=== PATIENT | female | born 1990 | race Caucasian/White ===

== ENCOUNTER 2020-02-25 11:49 | Emergency (ER) | payer OTHER, MEDICAID, SELFPAY ==
[2020-02-25 11:59] VITALS: BP 130/82; PULSE 66; RESP 12; TEMP 36.9; BMI 21.4
--- NOTE | 2020-02-25 12:07 | DI.RAD.S_ITS ---
PROCEDURE: XR SHOULDER LT MIN 2V INDICATIONS: fell on anterior shoulder 3 days ago, skateboard, pain/ROM TECHNIQUE: 2 views of the shoulder were acquired. COMPARISON: None. FINDINGS: Bones: No fractures or dislocations. No suspicious bony lesions. Visualized ribs appear intact. Soft tissues: No suspicious soft tissue calcifications. IMPRESSION: No visualized acute fracture or dislocation. However, if clinical concern and/or pain persist, short interval imaging followup in 7-10 days is recommended, as occult injury cannot be definitively excluded. Dictated by: Teri Momin M.D. on 02/25/2020 at 12:27 Approved by: Teri Momin M.D. on 02/25/2020 at 12:29
--- NOTE | 2020-02-25 12:25 | ED_ITS ---
HPI - Extremity Injury (Upper) <KRYS StroudP - Last Filed: 02/25/20 12:47> General Chief Complaint: Extremity Injury, Upper Stated Complaint: left shoulder injury from skate boarding Time Seen by Provider: 02/25/20 12:00 Source: patient Mode of arrival: Ambulatory Limitations: no limitations History of Present Illness HPI narrative: This is a 29-year-old female, nonsmoker, with noncontributing medical history presents to ED with chief complain of generalize left shoulder discomfort for last 3 days after she fell off skateboarding with a helmet on. She was coming down a ramp and and accidentally fell and slammed on left anterior shoulder while the arm was hyper extended. Reports has limited range of motion on left shoulder but is able to extend and flex elbow, wrist and fingers and intact sensation distally. Patient has been using ice which helped with discomfort. She has not been taking any medications but is taking collagen, vitamin-C and topical magnesium for pain. Right dominant hand. Patient denies injuring head, losing consciousness or other areas from this fall. Review of Systems <Jorge RodrigesShashiKRYS GonsalezP - Last Filed: 02/25/20 12:47> Review of Systems Narrative: General: Denies fever, chills, fatigue, malaise, sweats. HEENT: Denies sinus pain, ear pain, sore throat, difficulty swallowing, dizziness. Respiratory: Denies dyspnea, cough, wheezing, hemoptysis, sputum. Cardiovascular: Denies chest pain, palpitations, orthopnea, edema. Gastrointestinal: Denies nausea, vomiting, abdominal pain, diarrhea, constipation, melena. : Denies dysuria, frequency, incontinence, hematuria, urinary retention. Musculoskeletal: See HPI Skin: Denies rash, skin lesions, or other. Neurologic: Denies weakness, headache, numbness, change in speech, confusion, seizures, incoordination. Psychiatric: No concerning psychosocial issues. 12-point review of systems is negative except for those stated above. Patient History <KRYS StroudP - Last Filed: 02/25/20 12:47> Social History Smoking Status: Never smoker Smoking Status: Never smoker alcohol intake frequency: a few times a week Alcohol type: beer Substance Use Type: does not use Exam <KRYS StroudP - Last Filed: 02/25/20 12:47> Narrative Exam Narrative: General appearance: well developed, well nourished, in no acute distress. Head: normocephalic, atraumatic, no scalp lesions, non-tender. ENT: Hearing grossly intact. Airway patent. Neck/Thyroid: neck supple, full range of motion, no visible masses or meningeal signs. No JVD, non-tender without lymphadenopathy. Skin: no suspicious rashes, lesions over visible areas. Warm and dry and appropriate color for ethnicity. Heart: no clubbing, no cyanosis, no edema. S1 and S2 normal. RRR w/o murmurs, clicks, or bruits. Lungs: Breathing even and unlabored. No stridor. No accessory muscles used. Able to speak in full sentences. Chest: normal shape and expansion. Abdomen: non-obese, non-distended. Neurologic: alert and oriented. Cognitive exam, RIG OPERATOR and PNS grossly intact on informal exam. Psych: good eye contact, normal affect. Initial Vital Signs Initial Vital Signs: Vital Signs Temperature 98.4 F 02/25/20 11:59 Pulse Rate 66 02/25/20 11:59 Respiratory Rate 12 02/25/20 11:59 Blood Pressure 130/82 02/25/20 11:59 Extrem Left upper extremity: normal to inspection, shoulder/upper arm Details: inspection abnormal, tenderness Location: of the A-C joint, of the proximal humerus and over the biceps tendon and abnormal ROM (greater than 90 degress) Details: pain with active ROM Details: in ADduction, in ABduction, in extension, in flexion and in internal rotation and pain with passive ROM, elbow/forearm Details: normal to inspection and normal ROM; no tenderness and no swelling and wrist Details: normal to inspection and normal ROM; no tenderness and no swelling; ROM limited <Kim Martínez DO - Last Filed: 02/27/20 08:25> Initial Vital Signs Initial Vital Signs: Vital Signs Temperature 98.4 F 02/25/20 11:59 Pulse Rate 66 02/25/20 11:59 Respiratory Rate 12 02/25/20 11:59 Blood Pressure 130/82 02/25/20 11:59 Scores <LISA Stroud - Last Filed: 02/25/20 12:47> GCS [place] coma scale eye opening: Spontaneous Jenna coma scale verbal response: Orientated [place] coma scale motor response: Obey commands [place] coma scale total score: 15 Course <LISA Stroud - Last Filed: 02/25/20 12:47> Orders Ordered: ED Orders 02/25/20 12:07 XR shoulder LT min 2V Stat Vital Signs Vital signs: Vital Signs - 8 hr 02/25/20 11:59 Temperature 98.4 F Pulse Rate 66 Respiratory Rate 12 Blood Pressure 130/82 <Kim Martínez DO - Last Filed: 02/27/20 08:25> Orders Ordered: ED Orders 02/25/20 12:07 XR shoulder LT min 2V Stat Vital Signs Vital signs: Vital Signs - 8 hr 02/25/20 11:59 Temperature 98.4 F Pulse Rate 66 Respiratory Rate 12 Blood Pressure 130/82 MDM - Extremity Injury (Upper) <LISA Strodu - Last Filed: 02/25/20 12:47> Differential Diagnosis Differential diagnosis: Likely dislocation of shoulder and other (Shoulder contusion, fractures in shoulder) Medical Records Attestation: I reviewed the patient's medical records. Lab Data Labs: Point of Care Testing Test Results Negative Urine Dip Bedside Urine Glucose Negative Bedside Urine Bilirubin - Negative Bedside Urine Ketone - Negative Urine Specific [place] 1.010 Bedside Urine Occult Blood - Negative Bedside Urine pH 7.5 Bedside Urine Protein - Negative Bedside Urine Urobilinogen - Negative Bedside Urine Nitrite - Negative Bedside Urine Leukocytes - Negative Esterase Imaging Data XR- Left shoulder: Radiologist's Impression: [address] [address] XRay Report Signed [id number] : 1990Acct:[id number] Age/Sex: 29 / FDate of Service: 02/25/20 Loc: ED Accession Number: [id number] Procedure: XR shoulder LT min 2V Ordering Provider: Jorge Lees PROCEDURE: XR SHOULDER LT MIN 2V INDICATIONS: fell on anterior shoulder 3 days ago, skateboard, pain/ROM TECHNIQUE: 2 views of the shoulder were acquired. COMPARISON: None. FINDINGS: Bones: No fractures or dislocations. No suspicious bony lesions. Visualized ribs appear intact. Soft tissues: No suspicious soft tissue calcifications. IMPRESSION: No visualized acute fracture or dislocation. However, if clinical concern and/or pain persist, short interval imaging followup in 7-10 days is recommended, as occult injury cannot be definitively excluded. Dictated by: Teri Momin M.D. on 02/25/2020 at 12:27 Approved by: Teri Momin M.D. on 02/25/2020 at 12:29 MDM Narrative Medical decision making narrative: This is a 29-year-old female who injured left shoulder after fell off skateboarding while coming down a ramp and landed on anterior left shoulder while the affected arm was hyper extended. Patient has limited range of motion on left shoulder greater than 90 degree with forward flexion, abduction. Pain with adduction, internal and external rotation. Patient reports intact sensation and distal pulse in left hand. X-ray test without acute findings. Advised to take [id number] Tylenol and or Motrin as needed for discomfort and use a sling if it helps with pain but to do gentle stretching on left shoulder several times a day to prevent frozen shoulder. Patient advised to follow-up with primary care physician for possible a referral to physical therapist, further imaging test if pain persists and patient verbalized understanding and agreement with treatment plan. <Kim Martínez, - Last Filed: 02/27/20 08:25> Lab Data Labs: Point of Care Testing Test Results Negative Urine Dip Bedside Urine Glucose Negative Bedside Urine Bilirubin - Negative Bedside Urine Ketone - Negative Urine Specific [place] 1.010 Bedside Urine Occult Blood - Negative Bedside Urine pH 7.5 Bedside Urine Protein - Negative Bedside Urine Urobilinogen - Negative Bedside Urine Nitrite - Negative Bedside Urine Leukocytes - Negative Esterase Discharge Plan Departure Patient Disposition: Home Clinical Impression: Acute shoulder pain Qualifiers: Laterality: left Qualified Code(s): M25.512 - Pain in left shoulder Discharge Date/Time: 02/25/20 12:54 Instructions: DI for Shoulder Sprain Activity Restrictions/Additional Instructions: You have been diagnosed with [left shoulder pain from a fall. According to x- ray test today, no fractures or dislocation appreciated. There is limited range of motion on left upper arm/shoulder]. What to do: *Take your medications as directed. Please take [id number] Tylenol and or Motrin as needed for discomfort. *Follow up with your primary care provider in 2-3 days, call for an appointment. Let them know you were seen in the ED and that we asked you to be seen in follow up. You may require physical therapy or further imaging test if your pain persists. *Return to ED if you have any new, worsening, or concerning symptoms, such as [weakness, tingling/numbness on affected arm, chest pain, breathing difficulty, unable to tolerate fluids, or any acute concerns]. <Kim Martínez, DO - Last Filed: 02/27/20 08:25> Cosign ED Attending Cosedature Attestation: I was immediately available in the department for consultation. Documentation has been reviewed. I agree with assessment and plan.
== END 2020-02-25 12:54 | disposition home or self-care (01) ==
PROVIDERS: Emergency Provider Nurse Practitioner Family
DX: M25.512 Pain in left shoulder (principal); V00.131A Fall from skateboard, initial encounter
CPT/HCPCS: 73030; 81003; 81025; 99282; 99283